=== PATIENT | female | born 1960 | race Caucasian/White ===

== ENCOUNTER 2018-02-02 09:12 | Emergency (ER) | payer MEDICARE, OTHER ==
[~2018-02-02] VITALS: Ht 162.6 cm; Wt 82.5 kg
[~2018-02-02 09:12] MED LIST: ABAT250V; ALBU90OI6 INH; ALPR.5; ALPR1; ALPR1 PO; AMIT25; AMOCLA875 PO; ASPI325; ATOR40TA PO; ATOR80 PO; BACL10 PO; BUME1; BUME2 PO; CALC.25 PO; CALCAVITDA PO; CEPH500; CEPH500 PO; CLIN300 PO; CYCL10; CYCL10 PO; DULO30; DULO30 PO; DULO60 PO; ENOX40I SC; ERGO50000 PO; ESCI20; FENO145 PO; FLUT44OIA IH; FURO80; FURO80 PO; GEMF600; GLIM2; GLIP10 PO; GLIP5 PO; HYDACE5 PO; HYDACE5325; HYDHCL25 PO; HYDMOR8 PO; IBUP800 PO; INSULANPEN SC; K-Dur20 MEQ PO; KETO30I; LEVFLO250 PO; LEVSOD100 PO; LEVSOD25 PO; LEVSOD50 PO; LISI10; LISI5 PO; LORA1 PO; Lisinopril2.5 MG PO; META800 PO; METF500; METF500 PO; METH10; MORP15ER; MORP30; MORP30 PO; MORP30ER; OMEP20ER PO; OXYACE5T PO; OXYB5 PO; OXYC15ER PO; OXYC30 PO; OXYC5 PO; PIOG30 PO; PIOG45 PO; POTCHL10ER PO; POTCHL20ER; PRED20 PO; PREG100 PO; PREG25 PO; PREG75 PO; PROP60; QUET100; QUIN300 PO; RANI150; RANI150 PO; RIZA10MLT MM; Roxicodone15 MG PO; SENN187; SENN187 PO; SERT100; SERT50; SITA100T2 PO; SITA50T2; SITA50T2 PO; SPIR25 PO; SULTRIDS PO; SUMA25; SUMA5NI; Sumatriptan5 MG INH; TIAG4; TRIHYD253B; VITAMIN D-32000 UNI1 PO; Zanaflex4 M1 PO; [UNRECOGNIZED DRUG - OTHER]; [UNRECOGNIZED DRUG - OTHER]
[2018-02-02 11:40] LABS: BASOPHILS ABSOLUTE AUTO 0.04 K/mm3 (0.00-0.23); BASOPHILS PERCENT AUTO 0 % (0-2); EOSINOPHILS ABSOLUTE AUTO 0.34 K/mm3 (0.00-0.68); EOSINOPHILS PERCENT AUTO 3 % (0-6); Hematocrit 38.5 % (33.0-51.0); Hemoglobin 12.6 g/dL (11.5-16.0); IMMATURE GRAN ABSOLUTE AUTO 0.06 K/mm3 (0.00-0.10); IMMATURE GRAN PERCENT AUTO 1 % (0-1); LYMPHOCYTES ABSOLUTE AUTO 1.37 K/mm3 (0.84-5.20); LYMPHOCYTES PERCENT AUTO 13 % (21-46); MONOCYTES ABSOLUTE AUTO 1.06 K/mm3 (0.16-1.47); MONOCYTES PERCENT AUTO 10 % (4-13); Mean Corpuscular HGB 29.4 pg (26.0-34.0); Mean Corpuscular HGB Conc 32.7 g/dL (31.5-36.5); Mean Corpuscular Volume 90 fL (80-100); Mean Platelet Volume 9.5 fL (9.1-12.4); NEUTROPHILS PERCENT AUTO 73 % (41-73); Platelet Count 141 K/mm3 (150-400); RDW Coefficient Variation 15.2 % (11.7-14.2); RDW Standard Deviation 50.6 fL (35.1-46.3); Red Blood Cell Count 4.28 M/mm3 (3.80-5.20); White Blood Cell Count 10.57 K/mm3 (4.00-11.30)
[2018-02-02] MEDS ORDERED: FURO40 PO ×2 (11:47)
[2018-02-02] MEDS ORDERED: VITAMIN B-121000 MCG PO (11:48)
[2018-02-02] MEDS ORDERED: CHOL10002 PO (11:49)
[2018-02-02] MEDS ORDERED: OXYB5 PO (11:50)
[2018-02-02] MEDS ORDERED: RANI150 PO (11:51)
[2018-02-02 11:57] LABS: Albumin, Blood 3.4 g/dL (3.4-5.0); Bilirubin, Total 0.2 mg/dL (0.1-1.0); Bun/Creatinine Ratio 47.8 (12.0-20.0); C-REACTIVE PROTEIN, EXT RANGE 5.78 mg/dL (0.000-0.300); Calcium, Blood 8.9 mg/dL (8.5-10.1); Creatinine, Blood 1.13 mg/dL (0.40-1.00); Globulin, Blood 3.5 g/dL (2.2-4.0); Potassium, Blood 4.1 mmol/L (3.5-5.5); Total Protein, Blood 6.9 g/dL (6.4-8.2)
[2018-02-02] MEDS ORDERED: FERRO-TIME325 MG PO (11:57)
[2018-02-02] MEDS ORDERED: POTCHL10ER PO (11:58)
[2018-02-02] MEDS ORDERED: OYSTER SHELL 51 EACH PO (11:59)
[2018-02-02] MEDS ORDERED: ALBU90OI6 INH (12:00)
[2018-02-02] MEDS ORDERED: TIZANIDINE HCL4 MG PO (12:00)
[2018-06-27] MEDS ORDERED: AMIT25 PO (07:54)
[2018-10-08] MEDS ORDERED: DEEP SEA44 ML (21:59)
[2018-10-09] MEDS ORDERED: Zanaflex4 MG PO (01:19)
[2018-10-09] MEDS ORDERED: LISI5 PO (01:21)
[2018-10-09] MEDS ORDERED: GLIP5 PO (01:22)
[2018-10-09] MEDS ORDERED: FURO40 PO (01:22)
[2018-10-09] MEDS ORDERED: LEVSOD50 PO (01:28)
[2018-10-09] MEDS ORDERED: SITA100T2 PO (01:30)
[2018-10-09] MEDS ORDERED: ALPR.5 PO (01:31)
[2018-10-13] MEDS ORDERED: DOCU100 PO (11:38)
[2018-10-13] MEDS ORDERED: DEXA4 PO (11:38)
[2018-10-13] MEDS ORDERED: NYSTATIN TOP (11:39)
[2018-10-13] MEDS ORDERED: ROXICODONE5 MG PO (11:42)
[2018-10-13] MEDS ORDERED: ACET325 PO (11:44)
== END 2018-02-02 14:04 | disposition home or self-care (01) ==
LOC: ER 09:12
PROVIDERS: Internal Medicine
DX: L53.9 Erythematous condition, unspecified (principal); J44.9 Chronic obstructive pulmonary disease, unspecified; F17.200 Nicotine dependence, unspecified, uncomplicated; E11.40 Type 2 diabetes mellitus with diabetic neuropathy, unspecified; Z98.890 Other specified postprocedural states; Z90.710 Acquired absence of both cervix and uterus; Z91.048 Other nonmedicinal substance allergy status; Z79.2 Long term (current) use of antibiotics; Z79.899 Other long term (current) drug therapy; Z96.652 Presence of left artificial knee joint
CPT/HCPCS: 36415; 80053; 82947; 83605; 85025; 86140; 87040; 87070; 87075; 87077; 87147; 87186; 87205; 96365; 96366; 99283; J3370; J7050

== ENCOUNTER 2018-06-27 06:37 | Inpatient (IN) | payer MEDICARE, OTHER ==
[~2018-06-27] VITALS: Ht 162.6 cm; Wt 75.5 kg
[~2018-06-27 06:37] MED LIST changes: +CHOL10002 PO; +FERRO-TIME325 MG PO; +FURO40 PO; +OYSTER SHELL 51 EACH PO; +TIZANIDINE HCL4 MG PO; +VITAMIN B-121000 MCG PO
[2018-06-27] MEDS ORDERED: BUME2 PO (07:54)
[2018-06-27] MEDS ORDERED: AMIT50 PO (07:54)
[2018-06-27 08:20] LABS: BASOPHILS ABSOLUTE AUTO 0.09 K/mm3 (0.00-0.23); BASOPHILS PERCENT AUTO 1 % (0-2); EOSINOPHILS ABSOLUTE AUTO 0.29 K/mm3 (0.00-0.68); EOSINOPHILS PERCENT AUTO 2 % (0-6); Hematocrit 41.4 % (33.0-51.0); IMMATURE GRAN ABSOLUTE AUTO 0.18 K/mm3 (0.00-0.10); IMMATURE GRAN PERCENT AUTO 1 % (0-1); LYMPHOCYTES ABSOLUTE AUTO 1.38 K/mm3 (0.84-5.20); LYMPHOCYTES PERCENT AUTO 8 % (21-46); MONOCYTES ABSOLUTE AUTO 1.17 K/mm3 (0.16-1.47); MONOCYTES PERCENT AUTO 7 % (4-13); Mean Corpuscular HGB 28.7 pg (26.0-34.0); Mean Corpuscular HGB Conc 33.8 g/dL (31.5-36.5); Mean Corpuscular Volume 85 fL (80-100); Mean Platelet Volume 10.2 fL (9.1-12.4); NEUTROPHILS ABSOLUTE AUTO 13.54 K/mm3 (1.96-9.15); NEUTROPHILS PERCENT AUTO 81 % (41-73); Platelet Count 155 K/mm3 (150-400); RDW Coefficient Variation 14.8 % (11.7-14.2); RDW Standard Deviation 46.3 fL (35.1-46.3); Red Blood Cell Count 4.87 M/mm3 (3.80-5.20); White Blood Cell Count 16.65 K/mm3 (4.00-11.30)
[2018-06-27 08:33] LABS: International Normalized Ratio 1.1; Prothrombin Time Results 11.3 Sec (9.7-11.5)
[2018-06-27 08:42] LABS: Albumin, Blood 3.5 g/dL (3.4-5.0); Albumin/Globulin Ratio 0.8 (0.8-1.8); Bilirubin, Total 0.7 mg/dL (0.1-1.0); Creatinine, Blood 4.2 mg/dL (0.40-1.00); Globulin, Blood 4.2 g/dL (2.2-4.0); Magnesium, Blood 1.7 mg/dL (1.6-2.4); Potassium, Blood 3.5 mmol/L (3.5-5.5); Total Protein, Blood 7.7 g/dL (6.4-8.2); Troponin I 0.017 ng/mL (0.000-0.040)
[2018-06-27 08:46] LABS: Thyroid Stimulating Hormone 0.835 uIU/mL (0.360-4.800)
[2018-06-27 08:59] LABS: Bun/Creatinine Ratio 41.7 (12.0-20.0)
[2018-06-27 09:31] LABS: Base Excess Venous -0.1 mmol/L; Bicarbonate Venous 24.8 mmol/L (24.0-30.0); PCO2 Venous 32.7 mmHg (38-42); PO2 Venous 184 mmHg (38-42); pH Blood Venous 7.47 (7.34-7.37)
[2018-06-27 10:05] LABS: Source, Urine Catheter
[2018-06-27 10:11] LABS: Bilirubin, Urine Neg (Neg); Blood, Urine 1+ (Neg); Glucose Qualitative, Urine Neg (Neg); Ketones, Urine Neg (Neg); Leukocyte Esterase, Urine 1+ (Neg); Nitrite, Urine Neg (Neg); Protein, Urine 2+ (Neg); Specific Gravity, Urine 1.015 (1.003-1.022); Urobilinogen, Urine NORM (Normal)
[2018-06-27 10:21] LABS: Appearance, Urine Hazy (Clear); Color, Urine Yellow (P-Yellow)
[2018-06-27 10:22] LABS: Amorphous Light (0-Heavy); Bacteria Few /hpf; Mucus Light (0-Heavy); Red Blood Cells, Urine 0-2 /hpf (0-2); Squamous Epithelial Cells Rare /hpf (Few); White Blood Cells, Urine 0-2 /hpf (0-5)
[2018-06-27 10:28] LABS: U Amphetamine Screen Not Detected
[2018-06-27 10:29] LABS: U Barbituate Screen Not Detected; U Benzodiazapine Screen Not Detected; U Buprenorphine Screen Not Detected; U Cannabinoids Screen Not Detected; U Cocaine Screen Not Detected; U Methadone Screen Not Detected; U Methamphetamine Screen Not Detected; U Opiates Screen Not Detected; U Oxycodone Screen Not Detected; U Phencyclidine Screen Not Detected; U Propoxyphene Screen Not Detected
[2018-06-27 11:01] LABS: Calcium, Ionized (POC) 0.71 mmol/L (1.10-1.46); Chloride (POC) 92 mmol/L (98-108); Glucose (ISTAT POC) 86 mg/dL (70-99); Hemoglobin (POC) 9.5 g/dL (12.0-16.0); Potassium (POC) 2.8 mmol/L (3.5-5.5); Sodium (POC) 134 mmol/L (135-148); Total CO2 (POC) 23 mmol/L (21-32)
[2018-06-27 13:46] LABS: Hematocrit 33.4 % (33.0-51.0); Hemoglobin 11.3 g/dL (11.5-16.0)
[2018-06-27 15:12] LABS: Bun/Creatinine Ratio 45.9 (12.0-20.0); Creatinine, Blood 3.18 mg/dL (0.40-1.00); Magnesium, Blood 1.4 mg/dL (1.6-2.4); Potassium, Blood 3.4 mmol/L (3.5-5.5)
[2018-06-27 19:13] LABS: Creatinine, Urine Random 17.9 mg/dL (27.00-270.00)
[2018-06-27 19:16] LABS: Microalb/Creat Ratio UR, Rand 286.592 mg/g (0.000-30.000); Microalbumin, Random Urine 51.3 mg/L (0.000-20.000)
[2018-06-27 19:27] LABS: Magnesium, Blood 2.1 mg/dL (1.6-2.4); Potassium, Blood 3.6 mmol/L (3.5-5.5)
[2018-06-28 04:25] LABS: BASOPHILS ABSOLUTE AUTO 0.04 K/mm3 (0.00-0.23); BASOPHILS PERCENT AUTO 0 % (0-2); EOSINOPHILS ABSOLUTE AUTO 0.28 K/mm3 (0.00-0.68); EOSINOPHILS PERCENT AUTO 3 % (0-6); Hematocrit 33.9 % (33.0-51.0); Hemoglobin 11.7 g/dL (11.5-16.0); IMMATURE GRAN ABSOLUTE AUTO 0.05 K/mm3 (0.00-0.10); IMMATURE GRAN PERCENT AUTO 1 % (0-1); LYMPHOCYTES ABSOLUTE AUTO 1.25 K/mm3 (0.84-5.20); LYMPHOCYTES PERCENT AUTO 12 % (21-46); MONOCYTES ABSOLUTE AUTO 0.79 K/mm3 (0.16-1.47); MONOCYTES PERCENT AUTO 8 % (4-13); Mean Corpuscular HGB 29.1 pg (26.0-34.0); Mean Corpuscular HGB Conc 34.5 g/dL (31.5-36.5); Mean Corpuscular Volume 84 fL (80-100); Mean Platelet Volume 9.7 fL (9.1-12.4); NEUTROPHILS ABSOLUTE AUTO 8.04 K/mm3 (1.96-9.15); NEUTROPHILS PERCENT AUTO 77 % (41-73); Platelet Count 140 K/mm3 (150-400); RDW Coefficient Variation 14.6 % (11.7-14.2); RDW Standard Deviation 45.1 fL (35.1-46.3); Red Blood Cell Count 4.02 M/mm3 (3.80-5.20); White Blood Cell Count 10.45 K/mm3 (4.00-11.30)
[2018-06-28 05:06] LABS: Alanine Aminotransfer (ALT/SGP 17 U/L (12-78); Albumin, Blood 2.7 g/dL (3.4-5.0); Albumin/Globulin Ratio 0.8 (0.8-1.8); Alk Phos 75 U/L (50-136); Anion Gap 10 mmol/L (6-16); Aspartate Aminotrans (AST/SGOT 18 U/L (12-37); Bilirubin, Total 0.5 mg/dL (0.1-1.0); Blood Urea Nitrogen 99 mg/dL (8-24); Bun/Creatinine Ratio 54.4 (12.0-20.0); CO2, Blood 27 mmol/L (21-32); Chloride, Blood 103 mmol/L (98-108); Creatinine, Blood 1.82 mg/dL (0.40-1.00); Globulin, Blood 3.4 g/dL (2.2-4.0); Glomerular Filtration Rate 30 (60-); Glucose, Blood 124 mg/dL (70-99); Potassium, Blood 3.5 mmol/L (3.5-5.5); Sodium, Blood 140 mmol/L (136-145); Total Protein, Blood 6.1 g/dL (6.4-8.2)
[2018-06-28 05:34] LABS: Calcium, Blood 8.2 mg/dL (8.5-10.1)
[2018-06-29 04:45] LABS: BASOPHILS ABSOLUTE AUTO 0.03 K/mm3 (0.00-0.23); BASOPHILS PERCENT AUTO 0 % (0-2); EOSINOPHILS ABSOLUTE AUTO 0.28 K/mm3 (0.00-0.68); EOSINOPHILS PERCENT AUTO 2 % (0-6); Hematocrit 35.9 % (33.0-51.0); Hemoglobin 11.9 g/dL (11.5-16.0); IMMATURE GRAN ABSOLUTE AUTO 0.06 K/mm3 (0.00-0.10); IMMATURE GRAN PERCENT AUTO 1 % (0-1); LYMPHOCYTES ABSOLUTE AUTO 1.03 K/mm3 (0.84-5.20); LYMPHOCYTES PERCENT AUTO 9 % (21-46); MONOCYTES ABSOLUTE AUTO 0.87 K/mm3 (0.16-1.47); MONOCYTES PERCENT AUTO 8 % (4-13); Mean Corpuscular HGB 28.9 pg (26.0-34.0); Mean Corpuscular HGB Conc 33.1 g/dL (31.5-36.5); NEUTROPHILS ABSOLUTE AUTO 9.17 K/mm3 (1.96-9.15); NEUTROPHILS PERCENT AUTO 80 % (41-73); Platelet Count 127 K/mm3 (150-400); RDW Coefficient Variation 14.7 % (11.7-14.2); RDW Standard Deviation 47.7 fL (35.1-46.3); Red Blood Cell Count 4.12 M/mm3 (3.80-5.20); White Blood Cell Count 11.44 K/mm3 (4.00-11.30)
[2018-06-29 04:50] LABS: Mean Corpuscular Volume 87 fL (80-100)
[2018-06-29 05:05] LABS: Albumin, Blood 2.7 g/dL (3.4-5.0); Anion Gap 10 mmol/L (6-16); Blood Urea Nitrogen 52 mg/dL (8-24); Bun/Creatinine Ratio 41.3 (12.0-20.0); CO2, Blood 28 mmol/L (21-32); Calcium, Blood 8.8 mg/dL (8.5-10.1); Chloride, Blood 106 mmol/L (98-108); Creatinine, Blood 1.26 mg/dL (0.40-1.00); Glomerular Filtration Rate 46 (60-); Glucose, Blood 147 mg/dL (70-99); Potassium, Blood 3.3 mmol/L (3.5-5.5); Sodium, Blood 144 mmol/L (136-145)
[2018-06-30 05:33] LABS: BASOPHILS ABSOLUTE AUTO 0.03 K/mm3 (0.00-0.23); BASOPHILS PERCENT AUTO 0 % (0-2); EOSINOPHILS ABSOLUTE AUTO 0.29 K/mm3 (0.00-0.68); EOSINOPHILS PERCENT AUTO 3 % (0-6); Hematocrit 40.1 % (33.0-51.0); Hemoglobin 13.2 g/dL (11.5-16.0); IMMATURE GRAN ABSOLUTE AUTO 0.04 K/mm3 (0.00-0.10); IMMATURE GRAN PERCENT AUTO 1 % (0-1); LYMPHOCYTES ABSOLUTE AUTO 0.99 K/mm3 (0.84-5.20); LYMPHOCYTES PERCENT AUTO 11 % (21-46); MONOCYTES ABSOLUTE AUTO 0.61 K/mm3 (0.16-1.47); MONOCYTES PERCENT AUTO 7 % (4-13); Mean Corpuscular HGB 29.2 pg (26.0-34.0); Mean Corpuscular HGB Conc 32.9 g/dL (31.5-36.5); Mean Corpuscular Volume 89 fL (80-100); Mean Platelet Volume 10.2 fL (9.1-12.4); NEUTROPHILS ABSOLUTE AUTO 6.72 K/mm3 (1.96-9.15); NEUTROPHILS PERCENT AUTO 78 % (41-73); Platelet Count 100 K/mm3 (150-400); RDW Standard Deviation 48.9 fL (35.1-46.3); Red Blood Cell Count 4.52 M/mm3 (3.80-5.20); White Blood Cell Count 8.68 K/mm3 (4.00-11.30)
[2018-06-30 05:59] LABS: Albumin, Blood 2.8 g/dL (3.4-5.0); Anion Gap 9 mmol/L (6-16); Blood Urea Nitrogen 29 mg/dL (8-24); Bun/Creatinine Ratio 25.2 (12.0-20.0); CO2, Blood 27 mmol/L (21-32); Calcium, Blood 8.2 mg/dL (8.5-10.1); Chloride, Blood 110 mmol/L (98-108); Creatinine, Blood 1.15 mg/dL (0.40-1.00); Glomerular Filtration Rate 52 (60-); Glucose, Blood 124 mg/dL (70-99); Magnesium, Blood 1.2 mg/dL (1.6-2.4); Phosphorus, Blood 1.8 mg/dL (2.5-4.9); Potassium, Blood 3.8 mmol/L (3.5-5.5); Sodium, Blood 146 mmol/L (136-145)
[2018-07-01 05:35] LABS: BASOPHILS ABSOLUTE AUTO 0.03 K/mm3 (0.00-0.23); BASOPHILS PERCENT AUTO 0 % (0-2); EOSINOPHILS ABSOLUTE AUTO 0.52 K/mm3 (0.00-0.68); EOSINOPHILS PERCENT AUTO 5 % (0-6); Hematocrit 34.7 % (33.0-51.0); Hemoglobin 11.2 g/dL (11.5-16.0); IMMATURE GRAN ABSOLUTE AUTO 0.04 K/mm3 (0.00-0.10); IMMATURE GRAN PERCENT AUTO 0 % (0-1); LYMPHOCYTES ABSOLUTE AUTO 1.41 K/mm3 (0.84-5.20); LYMPHOCYTES PERCENT AUTO 15 % (21-46); MONOCYTES ABSOLUTE AUTO 0.72 K/mm3 (0.16-1.47); MONOCYTES PERCENT AUTO 8 % (4-13); Mean Corpuscular HGB 28.9 pg (26.0-34.0); Mean Corpuscular HGB Conc 32.3 g/dL (31.5-36.5); Mean Corpuscular Volume 89 fL (80-100); Mean Platelet Volume 10.2 fL (9.1-12.4); NEUTROPHILS PERCENT AUTO 72 % (41-73); Platelet Count 125 K/mm3 (150-400); RDW Coefficient Variation 15.1 % (11.7-14.2); RDW Standard Deviation 49.9 fL (35.1-46.3); Red Blood Cell Count 3.88 M/mm3 (3.80-5.20); White Blood Cell Count 9.62 K/mm3 (4.00-11.30)
[2018-07-01 05:45] LABS: Albumin, Blood 2.9 g/dL (3.4-5.0); Anion Gap 8 mmol/L (6-16); Blood Urea Nitrogen 19 mg/dL (8-24); Bun/Creatinine Ratio 17.6 (12.0-20.0); CO2, Blood 27 mmol/L (21-32); Calcium, Blood 7.9 mg/dL (8.5-10.1); Chloride, Blood 110 mmol/L (98-108); Creatinine, Blood 1.08 mg/dL (0.40-1.00); Glomerular Filtration Rate 55 (60-); Glucose, Blood 106 mg/dL (70-99); Magnesium, Blood 1.7 mg/dL (1.6-2.4); Phosphorus, Blood 1.4 mg/dL (2.5-4.9); Potassium, Blood 3.6 mmol/L (3.5-5.5); Sodium, Blood 145 mmol/L (136-145)
[2018-07-02 05:05] LABS: Albumin, Blood 2.9 g/dL (3.4-5.0); Anion Gap 7 mmol/L (6-16); Blood Urea Nitrogen 16 mg/dL (8-24); Bun/Creatinine Ratio 18.4 (12.0-20.0); CO2, Blood 25 mmol/L (21-32); Calcium, Blood 8.1 mg/dL (8.5-10.1); Chloride, Blood 112 mmol/L (98-108); Creatinine, Blood 0.87 mg/dL (0.40-1.00); Glomerular Filtration Rate >60 (60-); Glucose, Blood 114 mg/dL (70-99); Phosphorus, Blood 1.2 mg/dL (2.5-4.9); Potassium, Blood 3.5 mmol/L (3.5-5.5); Sodium, Blood 144 mmol/L (136-145)
[2018-07-03 06:16] LABS: Albumin, Blood 3.1 g/dL (3.4-5.0); Anion Gap 8 mmol/L (6-16); Blood Urea Nitrogen 12 mg/dL (8-24); Bun/Creatinine Ratio 14.6 (12.0-20.0); CO2, Blood 23 mmol/L (21-32); Calcium, Blood 7.7 mg/dL (8.5-10.1); Chloride, Blood 111 mmol/L (98-108); Creatinine, Blood 0.82 mg/dL (0.40-1.00); Glomerular Filtration Rate >60 (60-); Glucose, Blood 127 mg/dL (70-99); Phosphorus, Blood 1.4 mg/dL (2.5-4.9); Potassium, Blood 3.4 mmol/L (3.5-5.5); Sodium, Blood 142 mmol/L (136-145)
[2018-07-04 08:29] LABS: Albumin, Blood 2.9 g/dL (3.4-5.0); Anion Gap 8 mmol/L (6-16); Blood Urea Nitrogen 12 mg/dL (8-24); Bun/Creatinine Ratio 13.5 (12.0-20.0); CO2, Blood 23 mmol/L (21-32); Calcium, Blood 7.4 mg/dL (8.5-10.1); Chloride, Blood 116 mmol/L (98-108); Creatinine, Blood 0.89 mg/dL (0.40-1.00); Glomerular Filtration Rate >60 (60-); Glucose, Blood 122 mg/dL (70-99); Phosphorus, Blood 1.8 mg/dL (2.5-4.9); Potassium, Blood 3.7 mmol/L (3.5-5.5); Sodium, Blood 147 mmol/L (136-145)
[2018-07-05 05:43] LABS: Hematocrit 34.1 % (33.0-51.0); Mean Corpuscular HGB 28.1 pg (26.0-34.0); Mean Corpuscular HGB Conc 32.3 g/dL (31.5-36.5); Mean Corpuscular Volume 87 fL (80-100); Mean Platelet Volume 10.1 fL (9.1-12.4); Platelet Count 150 K/mm3 (150-400); RDW Standard Deviation 47.6 fL (35.1-46.3); Red Blood Cell Count 3.91 M/mm3 (3.80-5.20); White Blood Cell Count 7.52 K/mm3 (4.00-11.30)
[2018-07-05 06:14] LABS: Albumin, Blood 2.9 g/dL (3.4-5.0); Anion Gap 8 mmol/L (6-16); Blood Urea Nitrogen 10 mg/dL (8-24); Bun/Creatinine Ratio 12.3 (12.0-20.0); CO2, Blood 24 mmol/L (21-32); Calcium, Blood 7.5 mg/dL (8.5-10.1); Chloride, Blood 115 mmol/L (98-108); Creatinine, Blood 0.81 mg/dL (0.40-1.00); Glomerular Filtration Rate >60 (60-); Glucose, Blood 101 mg/dL (70-99); Potassium, Blood 3.6 mmol/L (3.5-5.5); Sodium, Blood 147 mmol/L (136-145)
[2018-07-06 10:16] LABS: Anion Gap 8 mmol/L (6-16); Blood Urea Nitrogen 9 mg/dL (8-24); Bun/Creatinine Ratio 10.5 (12.0-20.0); CO2, Blood 24 mmol/L (21-32); Calcium, Blood 8.1 mg/dL (8.5-10.1); Chloride, Blood 111 mmol/L (98-108); Creatinine, Blood 0.85 mg/dL (0.40-1.00); Glomerular Filtration Rate >60 (60-); Glucose, Blood 170 mg/dL (70-99); Potassium, Blood 3.8 mmol/L (3.5-5.5); Sodium, Blood 143 mmol/L (136-145)
[2018-07-11 09:14] LABS: Anion Gap 7 mmol/L (6-16); Blood Urea Nitrogen 10 mg/dL (8-24); Bun/Creatinine Ratio 13.1 (12.0-20.0); CO2, Blood 23 mmol/L (21-32); Calcium, Blood 7.9 mg/dL (8.5-10.1); Chloride, Blood 112 mmol/L (98-108); Creatinine, Blood 0.76 mg/dL (0.40-1.00); Glomerular Filtration Rate >60 (60-); Glucose, Blood 139 mg/dL (70-99); Phosphorus, Blood 1.7 mg/dL (2.5-4.9); Sodium, Blood 142 mmol/L (136-145)
[2018-07-11] MEDS ORDERED: Synthroid/Lev0.05 MG PO (12:26)
[2018-07-11] MEDS ORDERED: SACC250C (12:28)
[2018-07-11] MEDS ORDERED: VANC125 PO (12:28)
[2018-07-11] MEDS ORDERED: DOCU100 PO (12:29)
[2018-07-11] MEDS ORDERED: K-Phos Origina500 MG PO (12:31)
== END 2018-07-11 14:41 | disposition home or self-care (01) | DRG 682 ==
LOC: ER 06:37 → ICUW 10:45 → ICUE 10:45 → MEDS 10:45 → ICUE 12:00 → MEDS 06-29 18:15 → ENPENDDIS 07-11 11:35 → MEDS 07-11 14:41
PROVIDERS: Emergency Medicine; Hospitalist; Internal Medicine; Internal Medicine Critical Care Medicine
PROC: 3E033XZ Introduction of Vasopressor into Peripheral Vein, Percutaneous Approach (ICD-10-PCS; principal; 2018-06-28)
DX: N17.9 Acute kidney failure, unspecified (principal); G93.41 Metabolic encephalopathy; J96.01 Acute respiratory failure with hypoxia; A41.9 Sepsis, unspecified organism; A04.72 Enterocolitis due to Clostridium difficile, not specified as recurrent; E87.1 Hypo-osmolality and hyponatremia; E11.22 Type 2 diabetes mellitus with diabetic chronic kidney disease; I12.9 Hypertensive chronic kidney disease with stage 1 through stage 4 chronic kidney disease, or unspecified chronic kidney disease; N18.3 Chronic kidney disease, stage 3 (moderate); I95.9 Hypotension, unspecified; E83.39 Other disorders of phosphorus metabolism; E83.42 Hypomagnesemia; E87.6 Hypokalemia; G93.9 Disorder of brain, unspecified; G47.33 Obstructive sleep apnea (adult) (pediatric); E03.9 Hypothyroidism, unspecified; G89.4 Chronic pain syndrome; R53.81 Other malaise; F17.210 Nicotine dependence, cigarettes, uncomplicated; E78.5 Hyperlipidemia, unspecified; Z66 Do not resuscitate; F32.9 Major depressive disorder, single episode, unspecified; E11.40 Type 2 diabetes mellitus with diabetic neuropathy, unspecified; G43.909 Migraine, unspecified, not intractable, without status migrainosus; M41.9 Scoliosis, unspecified; E21.3 Hyperparathyroidism, unspecified
CPT/HCPCS: 36415; 36569; 51702; 70450; 70553; 71045; 71046; 76770; 80047; 80048; 80053; 80069; 81001; 82043; 82330; 82550; 82570; 82803; 82947; 83036; 83605; 83690; 83735; 83880; 83970; 84100; 84132; 84300; 84443; 84484; 85014; 85018; 85025; 85027; 85610; 87040; 87086; 87493; 93005; 93010; 94660; 94760; 94762; 96361; 96365; 96376; 97110; 97116; 97163; 97166; 97530; 97535; 99285-25; A9577; C1751; C9113; G0515; G8978; G8979; G8987; G8988; J0696; J1644; J1815; J1940; J2405; J2550; J2997; J3010; J3475; J3480; J7030; J7040; J7050; J7060; J7120; Q0163

== ENCOUNTER 2018-07-20 09:45 | Emergency (ER) | payer MEDICARE, OTHER ==
[~2018-07-20] VITALS: Ht 160 cm; Wt 86.2 kg
[~2018-07-20 09:45] MED LIST changes: +AMIT50 PO; +DOCU100 PO; +K-Phos Origina500 MG PO; +SACC250C; +Synthroid/Lev0.05 MG PO; +VANC125 PO
[2018-07-20 10:57] LABS: BASOPHILS ABSOLUTE AUTO 0.04 K/mm3 (0.00-0.23); BASOPHILS PERCENT AUTO 0 % (0-2); EOSINOPHILS ABSOLUTE AUTO 0.32 K/mm3 (0.00-0.68); EOSINOPHILS PERCENT AUTO 3 % (0-6); Hematocrit 35.4 % (33.0-51.0); Hemoglobin 11.5 g/dL (11.5-16.0); IMMATURE GRAN ABSOLUTE AUTO 0.04 K/mm3 (0.00-0.10); IMMATURE GRAN PERCENT AUTO 0 % (0-1); LYMPHOCYTES ABSOLUTE AUTO 1.39 K/mm3 (0.84-5.20); LYMPHOCYTES PERCENT AUTO 14 % (21-46); MONOCYTES ABSOLUTE AUTO 1.02 K/mm3 (0.16-1.47); MONOCYTES PERCENT AUTO 10 % (4-13); Mean Corpuscular HGB 29.8 pg (26.0-34.0); Mean Corpuscular HGB Conc 32.5 g/dL (31.5-36.5); Mean Corpuscular Volume 92 fL (80-100); Mean Platelet Volume 9.7 fL (9.1-12.4); NEUTROPHILS ABSOLUTE AUTO 7.49 K/mm3 (1.96-9.15); NEUTROPHILS PERCENT AUTO 73 % (41-73); Platelet Count 181 K/mm3 (150-400); RDW Coefficient Variation 18.5 % (11.7-14.2); RDW Standard Deviation 61.7 fL (35.1-46.3); Red Blood Cell Count 3.86 M/mm3 (3.80-5.20)
[2018-07-20 11:00] LABS: Albumin, Blood 3.2 g/dL (3.4-5.0); Albumin/Globulin Ratio 1.1 (0.8-1.8); Bilirubin, Total 0.2 mg/dL (0.1-1.0); Bun/Creatinine Ratio 14.9 (12.0-20.0); Creatinine, Blood 1.01 mg/dL (0.40-1.00); Potassium, Blood 4.6 mmol/L (3.5-5.5); Total Protein, Blood 6.2 g/dL (6.4-8.2)
[2018-07-20] MEDS ORDERED: FURO40 (13:37)
[2018-07-20 13:50] LABS: Source, Urine Clean Catch
[2018-07-20 14:03] LABS: Bilirubin, Urine Neg (Neg); Blood, Urine 2+ (Neg); Glucose Qualitative, Urine Neg (Neg); Ketones, Urine Neg (Neg); Leukocyte Esterase, Urine Neg (Neg); Nitrite, Urine Neg (Neg); Protein, Urine Neg (Neg); Specific Gravity, Urine 1.015 (1.003-1.022); Urobilinogen, Urine NORM (Normal)
[2018-07-20 14:25] LABS: Appearance, Urine Hazy (Clear); Color, Urine Yellow (P-Yellow)
[2018-07-20 14:26] LABS: Bacteria Few /hpf; Squamous Epithelial Cells Mod /hpf (Few); White Blood Cells, Urine 0-2 /hpf (0-5)
== END 2018-07-20 17:02 | disposition short-term general hospital (02) ==
LOC: ER 09:45
PROVIDERS: Emergency Medicine
DX: R41.82 Altered mental status, unspecified (principal); E86.0 Dehydration; G93.89 Other specified disorders of brain; E11.40 Type 2 diabetes mellitus with diabetic neuropathy, unspecified; J44.9 Chronic obstructive pulmonary disease, unspecified; Z91.048 Other nonmedicinal substance allergy status; Z79.899 Other long term (current) drug therapy
CPT/HCPCS: 36415; 70450; 71046; 71260; 73502; 80053; 81001; 82947; 85025; 93005; 93010; 96361; 96365; 96375; 99285-25; J1100; J2543; J7030; Q9967

== ENCOUNTER 2018-08-06 20:39 | Observation (INO) | payer MEDICARE, OTHER ==
[~2018-08-06] VITALS: Ht 162.6 cm; Wt 82.3 kg
[~2018-08-06 20:39] MED LIST changes: +AMIT25 PO; -AMIT50 PO; +FURO40
[2018-08-06] MEDS ORDERED: ALPR.5 PO (21:00)
[2018-08-06] MEDS ORDERED: ATOR40TA PO (21:00)
[2018-08-06] MEDS ORDERED: DEXA4 PO (21:02)
[2018-08-06] MEDS ORDERED: DEXA2 PO (21:03)
[2018-08-06] MEDS ORDERED: Flovent 110 MCG12 GM INH (21:06)
[2018-08-06] MEDS ORDERED: METO2.5 PO (21:07)
[2018-08-06] MEDS ORDERED: Omeprazole20 M1 PO (21:07)
[2018-08-06] MEDS ORDERED: OXYB5 PO (21:08)
[2018-08-06] MEDS ORDERED: OXYC15ER PO (21:09)
[2018-08-06] MEDS ORDERED: POTCHL20ER PO (21:10)
[2018-08-06] MEDS ORDERED: Phospha 250 Ne250 MG PO (21:10)
[2018-08-06] MEDS ORDERED: PREG150 PO (21:11)
[2018-08-06] MEDS ORDERED: SITA100T2 PO (21:11)
[2018-08-06] MEDS ORDERED: Ranitidine HCl150 M1 PO (21:11)
[2018-08-06] MEDS ORDERED: SPIR25 PO (21:12)
[2018-08-06 21:41] LABS: BASOPHILS ABSOLUTE AUTO 0.05 K/mm3 (0.00-0.23); BASOPHILS PERCENT AUTO 0 % (0-2); EOSINOPHILS ABSOLUTE AUTO 0.05 K/mm3 (0.00-0.68); EOSINOPHILS PERCENT AUTO 0 % (0-6); Hematocrit 35.5 % (33.0-51.0); Hemoglobin 11.2 g/dL (11.5-16.0); IMMATURE GRAN ABSOLUTE AUTO 0.61 K/mm3 (0.00-0.10); IMMATURE GRAN PERCENT AUTO 3 % (0-1); LYMPHOCYTES ABSOLUTE AUTO 1.01 K/mm3 (0.84-5.20); LYMPHOCYTES PERCENT AUTO 5 % (21-46); MONOCYTES ABSOLUTE AUTO 1.68 K/mm3 (0.16-1.47); MONOCYTES PERCENT AUTO 8 % (4-13); Mean Corpuscular HGB 29.9 pg (26.0-34.0); Mean Corpuscular HGB Conc 31.5 g/dL (31.5-36.5); Mean Corpuscular Volume 95 fL (80-100); Mean Platelet Volume 9.8 fL (9.1-12.4); NEUTROPHILS ABSOLUTE AUTO 18.84 K/mm3 (1.96-9.15); NEUTROPHILS PERCENT AUTO 85 % (41-73); Platelet Count 210 K/mm3 (150-400); RDW Standard Deviation 65.7 fL (35.1-46.3); Red Blood Cell Count 3.74 M/mm3 (3.80-5.20); White Blood Cell Count 22.24 K/mm3 (4.00-11.30)
[2018-08-06 22:03] LABS: Bilirubin, Total 0.2 mg/dL (0.1-1.0); Bun/Creatinine Ratio 34.9 (12.0-20.0); Calcium, Blood 8.9 mg/dL (8.5-10.1); Creatinine, Blood 1.06 mg/dL (0.40-1.00); Globulin, Blood 2.9 g/dL (2.2-4.0); Potassium, Blood 4.4 mmol/L (3.5-5.5); Total Protein, Blood 5.9 g/dL (6.4-8.2)
[2018-08-06 22:20] LABS: PCO2 Arterial 56.4 mmHg (35-45); PO2 Arterial 54.2 mmHg (80-100); pH Blood Arterial 7.36 (7.35-7.45)
[2018-08-06 22:46] LABS: Source, Urine Catheter
[2018-08-06 22:54] LABS: Appearance, Urine Clear (Clear); Bilirubin, Urine Neg (Neg); Blood, Urine Neg (Neg); Color, Urine Yellow (P-Yellow); Glucose Qualitative, Urine Neg (Neg); Ketones, Urine Neg (Neg); Leukocyte Esterase, Urine Neg (Neg); Nitrite, Urine Neg (Neg); Protein, Urine Neg (Neg); Urobilinogen, Urine NORM (Normal)
[2018-08-07 00:48] LABS: International Normalized Ratio 0.93; Prothrombin Time Results 9.6 Sec (9.7-11.5)
[2018-08-07 05:23] LABS: Hematocrit 35.3 % (33.0-51.0); Hemoglobin 11.3 g/dL (11.5-16.0); Mean Corpuscular HGB 29.7 pg (26.0-34.0); Mean Corpuscular Volume 93 fL (80-100); Mean Platelet Volume 9.9 fL (9.1-12.4); Platelet Count 211 K/mm3 (150-400); RDW Standard Deviation 64.1 fL (35.1-46.3); Red Blood Cell Count 3.81 M/mm3 (3.80-5.20); White Blood Cell Count 20.01 K/mm3 (4.00-11.30)
[2018-08-07 05:49] LABS: Alanine Aminotransfer (ALT/SGP 30 U/L (12-78); Albumin, Blood 2.6 g/dL (3.4-5.0); Alk Phos 75 U/L (50-136); Anion Gap 6 mmol/L (6-16); Aspartate Aminotrans (AST/SGOT 13 U/L (12-37); Bilirubin, Total 0.3 mg/dL (0.1-1.0); Blood Urea Nitrogen 33 mg/dL (8-24); CO2, Blood 30 mmol/L (21-32); Calcium, Blood 8.8 mg/dL (8.5-10.1); Chloride, Blood 104 mmol/L (98-108); Creatinine, Blood 0.87 mg/dL (0.40-1.00); Globulin, Blood 2.6 g/dL (2.2-4.0); Glomerular Filtration Rate >60 (60-); Glucose, Blood 110 mg/dL (70-99); Sodium, Blood 140 mmol/L (136-145); Total Protein, Blood 5.2 g/dL (6.4-8.2)
[2018-08-07 08:38] LABS: U Amphetamine Screen Not Detected; U Barbituate Screen Not Detected; U Benzodiazapine Screen DETECTED; U Cannabinoids Screen Not Detected; U Cocaine Screen Not Detected; U Methadone Screen Not Detected; U Methamphetamine Screen Not Detected; U Opiates Screen Not Detected; U Phencyclidine Screen Not Detected
[2018-08-07 08:39] LABS: U Buprenorphine Screen Not Detected; U Oxycodone Screen DETECTED; U Propoxyphene Screen Not Detected
[2018-08-08 06:07] LABS: BASOPHILS ABSOLUTE AUTO 0.04 K/mm3 (0.00-0.23); BASOPHILS PERCENT AUTO 0 % (0-2); EOSINOPHILS ABSOLUTE AUTO 0.11 K/mm3 (0.00-0.68); EOSINOPHILS PERCENT AUTO 1 % (0-6); Hematocrit 37.8 % (33.0-51.0); IMMATURE GRAN ABSOLUTE AUTO 0.23 K/mm3 (0.00-0.10); IMMATURE GRAN PERCENT AUTO 2 % (0-1); LYMPHOCYTES ABSOLUTE AUTO 1.82 K/mm3 (0.84-5.20); LYMPHOCYTES PERCENT AUTO 15 % (21-46); MONOCYTES ABSOLUTE AUTO 1.18 K/mm3 (0.16-1.47); MONOCYTES PERCENT AUTO 10 % (4-13); Mean Corpuscular HGB 29.9 pg (26.0-34.0); Mean Corpuscular HGB Conc 31.7 g/dL (31.5-36.5); Mean Corpuscular Volume 94 fL (80-100); Mean Platelet Volume 9.6 fL (9.1-12.4); NEUTROPHILS ABSOLUTE AUTO 8.96 K/mm3 (1.96-9.15); NEUTROPHILS PERCENT AUTO 73 % (41-73); Platelet Count 174 K/mm3 (150-400); RDW Coefficient Variation 18.9 % (11.7-14.2); Red Blood Cell Count 4.02 M/mm3 (3.80-5.20); White Blood Cell Count 12.34 K/mm3 (4.00-11.30)
[2018-08-08 06:55] LABS: Anion Gap 8 mmol/L (6-16); Blood Urea Nitrogen 31 mg/dL (8-24); Bun/Creatinine Ratio 36.7 (12.0-20.0); CO2, Blood 27 mmol/L (21-32); Calcium, Blood 8.3 mg/dL (8.5-10.1); Chloride, Blood 109 mmol/L (98-108); Creatinine, Blood 0.84 mg/dL (0.40-1.00); Glomerular Filtration Rate >60 (60-); Glucose, Blood 151 mg/dL (70-99); Potassium, Blood 3.8 mmol/L (3.5-5.5); Sodium, Blood 144 mmol/L (136-145)
[2018-08-08] MEDS ORDERED: Esgic Tablet1 EACH PO (10:28)
[2018-08-08] MEDS ORDERED: METF500C PO (10:29)
== END 2018-08-08 10:57 | disposition home or self-care (01) ==
LOC: DELPENDDIS → ER 20:39 → MEDS 20:40 → ENPENDDIS 08-08 07:58 → MEDS 08-08 10:57
PROVIDERS: Emergency Medicine; Family Medicine; Internal Medicine
DX: E86.0 Dehydration (principal); R51 Headache; G92 Toxic encephalopathy; R53.83 Other fatigue; E11.9 Type 2 diabetes mellitus without complications; J44.9 Chronic obstructive pulmonary disease, unspecified; G47.30 Sleep apnea, unspecified; E03.9 Hypothyroidism, unspecified; F17.210 Nicotine dependence, cigarettes, uncomplicated; D72.829 Elevated white blood cell count, unspecified; Z79.899 Other long term (current) drug therapy
CPT/HCPCS: 36415; 36600; 70450; 71046; 80048; 80053; 81003; 82140; 82803; 82947; 85025; 85027; 85610; 93005; 93010; 96361; 99285-25; G0378; J7030; P9612

== ENCOUNTER 2018-12-03 20:24 | Emergency (ER) | payer MEDICARE, OTHER ==
[~2018-12-03] VITALS: Ht 162.6 cm; Wt 68.0 kg
[~2018-12-03 20:24] MED LIST changes: +ACET325 PO; +ALPR.5 PO; +DEEP SEA44 ML; +DEXA2 PO; +DEXA4 PO; +Esgic Tablet1 EACH PO; +Flovent 110 MCG12 GM INH; +METF500C PO; +METO2.5 PO; +NYSTATIN TOP; +Omeprazole20 M1 PO; +POTCHL20ER PO; +PREG150 PO; +Phospha 250 Ne250 MG PO; +ROXICODONE5 MG PO; +Ranitidine HCl150 M1 PO; +Zanaflex4 MG PO
[2018-12-03 21:21] LABS: Source, Urine Clean Catch
[2018-12-03 21:26] LABS: BASOPHILS ABSOLUTE AUTO 0.08 K/mm3 (0.00-0.23); BASOPHILS PERCENT AUTO 1 % (0-2); EOSINOPHILS ABSOLUTE AUTO 0.31 K/mm3 (0.00-0.68); EOSINOPHILS PERCENT AUTO 2 % (0-6); Hematocrit 33.9 % (33.0-51.0); Hemoglobin 10.8 g/dL (11.5-16.0); IMMATURE GRAN PERCENT AUTO 2 % (0-1); LYMPHOCYTES ABSOLUTE AUTO 2.41 K/mm3 (0.84-5.20); LYMPHOCYTES PERCENT AUTO 18 % (21-46); MONOCYTES ABSOLUTE AUTO 1.17 K/mm3 (0.16-1.47); MONOCYTES PERCENT AUTO 9 % (4-13); Mean Corpuscular HGB 29.7 pg (26.0-34.0); Mean Corpuscular HGB Conc 31.9 g/dL (31.5-36.5); Mean Corpuscular Volume 93 fL (80-100); Mean Platelet Volume 8.5 fL (9.1-12.4); NEUTROPHILS ABSOLUTE AUTO 9.08 K/mm3 (1.96-9.15); NEUTROPHILS PERCENT AUTO 69 % (41-73); Platelet Count 353 K/mm3 (150-400); RDW Coefficient Variation 18.2 % (11.7-14.2); RDW Standard Deviation 61.8 fL (35.1-46.3); Red Blood Cell Count 3.64 M/mm3 (3.80-5.20); White Blood Cell Count 13.25 K/mm3 (4.00-11.30)
[2018-12-03 21:26] LABS: Bilirubin, Urine Neg (Neg); Blood, Urine 1+ (Neg); Glucose Qualitative, Urine Neg (Neg); Ketones, Urine 1+ (Neg); Leukocyte Esterase, Urine 2+ (Neg); Nitrite, Urine Neg (Neg); Protein, Urine 2+ (Neg); Specific Gravity, Urine 1.015 (1.003-1.022); Urobilinogen, Urine NORM (Normal)
[2018-12-03 21:32] LABS: Color, Urine Yellow (P-Yellow)
[2018-12-03 21:34] LABS: Appearance, Urine Hazy (Clear)
[2018-12-03 21:35] LABS: Bacteria Many /hpf; Red Blood Cells, Urine Rare /hpf (0-2); Squamous Epithelial Cells Many /hpf (Few); White Blood Cells, Urine 25-50 /hpf (0-5)
[2018-12-03 21:46] LABS: Albumin, Blood 3.1 g/dL (3.4-5.0); Albumin/Globulin Ratio 0.9 (0.8-1.8); Bilirubin, Total 0.2 mg/dL (0.1-1.0); Bun/Creatinine Ratio 13.8 (12.0-20.0); Creatinine, Blood 1.38 mg/dL (0.40-1.00); Globulin, Blood 3.3 g/dL (2.2-4.0); Potassium, Blood 3.1 mmol/L (3.5-5.5); Total Protein, Blood 6.4 g/dL (6.4-8.2)
[2018-12-06] MEDS ORDERED: Veetids 500500 MG PO (07:41)
== END 2018-12-03 23:45 | disposition home or self-care (01) ==
LOC: ER 20:24
PROVIDERS: Emergency Medicine
DX: E87.6 Hypokalemia (principal); Z88.8 Allergy status to other drugs, medicaments and biological substances; Z91.048 Other nonmedicinal substance allergy status; Z79.899 Other long term (current) drug therapy; Z79.84 Long term (current) use of oral hypoglycemic drugs; E11.40 Type 2 diabetes mellitus with diabetic neuropathy, unspecified
CPT/HCPCS: 36415; 70450; 80053; 81001; 85025; 87086; 87147; 96361; 96365; 96375; 99285-25; J0696; J2765; J3010; J7030

== ENCOUNTER 2018-12-06 09:25 | Emergency (ER) | payer MEDICARE, OTHER ==
[~2018-12-06] VITALS: Ht 162.6 cm; Wt 81.7 kg
[~2018-12-06 09:25] MED LIST changes: +Veetids 500500 MG PO
[2018-12-06 10:00] LABS: BASOPHILS ABSOLUTE AUTO 0.05 K/mm3 (0.00-0.23); BASOPHILS PERCENT AUTO 1 % (0-2); EOSINOPHILS ABSOLUTE AUTO 0.16 K/mm3 (0.00-0.68); EOSINOPHILS PERCENT AUTO 2 % (0-6); Hematocrit 30.8 % (33.0-51.0); Hemoglobin 9.9 g/dL (11.5-16.0); IMMATURE GRAN ABSOLUTE AUTO 0.11 K/mm3 (0.00-0.10); IMMATURE GRAN PERCENT AUTO 1 % (0-1); LYMPHOCYTES PERCENT AUTO 17 % (21-46); MONOCYTES ABSOLUTE AUTO 0.68 K/mm3 (0.16-1.47); MONOCYTES PERCENT AUTO 9 % (4-13); Mean Corpuscular HGB 29.6 pg (26.0-34.0); Mean Corpuscular HGB Conc 32.1 g/dL (31.5-36.5); Mean Corpuscular Volume 92 fL (80-100); Mean Platelet Volume 8.8 fL (9.1-12.4); NEUTROPHILS ABSOLUTE AUTO 5.31 K/mm3 (1.96-9.15); NEUTROPHILS PERCENT AUTO 70 % (41-73); Platelet Count 279 K/mm3 (150-400); RDW Coefficient Variation 18.3 % (11.7-14.2); RDW Standard Deviation 61.6 fL (35.1-46.3); Red Blood Cell Count 3.34 M/mm3 (3.80-5.20); White Blood Cell Count 7.61 K/mm3 (4.00-11.30)
[2018-12-06 10:23] LABS: Alanine Aminotransfer (ALT/SGP <6 U/L (12-78); Albumin, Blood 2.8 g/dL (3.4-5.0); Albumin/Globulin Ratio 0.9 (0.8-1.8); Alk Phos 60 U/L (50-136); Anion Gap 8 mmol/L (6-16); Aspartate Aminotrans (AST/SGOT 9 U/L (12-37); Bilirubin, Total 0.2 mg/dL (0.1-1.0); Blood Urea Nitrogen 8 mg/dL (8-24); Bun/Creatinine Ratio 10.3 (12.0-20.0); CO2, Blood 25 mmol/L (21-32); Calcium, Blood 7.3 mg/dL (8.5-10.1); Chloride, Blood 113 mmol/L (98-108); Creatinine, Blood 0.78 mg/dL (0.40-1.00); Globulin, Blood 3.1 g/dL (2.2-4.0); Glomerular Filtration Rate >60 (60-); Glucose, Blood 148 mg/dL (70-99); Sodium, Blood 146 mmol/L (136-145); Total Protein, Blood 5.9 g/dL (6.4-8.2)
[2018-12-06] MEDS ORDERED: PROM25 PO (12:34)
== END 2018-12-06 13:26 | disposition home or self-care (01) ==
LOC: ER 09:25
PROVIDERS: Emergency Medicine
DX: K29.70 Gastritis, unspecified, without bleeding (principal); E86.0 Dehydration; E11.40 Type 2 diabetes mellitus with diabetic neuropathy, unspecified; J44.9 Chronic obstructive pulmonary disease, unspecified; F17.200 Nicotine dependence, unspecified, uncomplicated; Z88.8 Allergy status to other drugs, medicaments and biological substances; Z91.048 Other nonmedicinal substance allergy status; Z79.899 Other long term (current) drug therapy; Z79.84 Long term (current) use of oral hypoglycemic drugs; Z79.891 Long term (current) use of opiate analgesic
CPT/HCPCS: 80053; 83690; 85025; 96361; 96374; 96375; 99285-25; C9113; J2405; J2550; J7120

== ENCOUNTER 2019-01-12 19:17 | Emergency (ER) | payer MEDICARE, OTHER ==
[~2019-01-12] VITALS: Ht 162.6 cm; Wt 65.8 kg
[~2019-01-12 19:17] MED LIST changes: +PROM25 PO
== END 2019-01-12 21:12 | disposition home or self-care (01) ==
LOC: ER 19:17
DX: M25.552 Pain in left hip (principal); J44.9 Chronic obstructive pulmonary disease, unspecified; F17.200 Nicotine dependence, unspecified, uncomplicated; Z91.048 Other nonmedicinal substance allergy status; Z79.899 Other long term (current) drug therapy; Z79.84 Long term (current) use of oral hypoglycemic drugs; Z99.89 Dependence on other enabling machines and devices; Z96.642 Presence of left artificial hip joint
CPT/HCPCS: 73502

== ENCOUNTER 2019-08-28 09:52 | Emergency (ER) | payer OTHER, MEDICARE ==
[~2019-08-28] VITALS: Ht 162.6 cm; Wt 90.7 kg
[2019-08-28] MEDS ORDERED: FURO40 PO (11:48)
[2019-08-28] MEDS ORDERED: Flonase 0.05% N16 GM (11:48)
[2019-08-28] MEDS ORDERED: Ventolin/Prove6.7 GM INH (11:49)
[2019-08-28] MEDS ORDERED: Alprazolam ER1 MG PO (12:32)
[2019-08-28] MEDS ORDERED: Roxicodone15 MG PO (12:32)
[2019-08-28] MEDS ORDERED: FUROSEMIDE (12:32)
[2019-08-28] MEDS ORDERED: POTA10T PO (12:33)
[2019-08-28] MEDS ORDERED: AMIT50 PO (12:33)
[2019-08-28] MEDS ORDERED: Ondansetron Odt8 MG PO (12:33)
[2019-08-28] MEDS ORDERED: Prilosec2.5 MG PO (12:33)
[2019-08-28] MEDS ORDERED: Zantac150 MG (12:33)
[2019-08-28] MEDS ORDERED: Cymbalta20 MG (12:33)
[2019-08-28] MEDS ORDERED: METO10 PO (12:34)
[2019-08-28] MEDS ORDERED: BREO ELLIPTA 11 EACH IH (12:34)
[2019-08-28] MEDS ORDERED: HYDMOR4 PO (12:34)
[2019-08-28] MEDS ORDERED: ATORVASTATIN CA40 MG PO (12:34)
[2019-08-28] MEDS ORDERED: METF500 PO (12:35)
== END 2019-08-28 12:48 | disposition home or self-care (01) ==
LOC: ER 09:52
DX: M96.621 Fracture of humerus following insertion of orthopedic implant, joint prosthesis, or bone plate, right arm (principal); E11.40 Type 2 diabetes mellitus with diabetic neuropathy, unspecified; F17.200 Nicotine dependence, unspecified, uncomplicated; Z88.8 Allergy status to other drugs, medicaments and biological substances; Z91.048 Other nonmedicinal substance allergy status; Z79.899 Other long term (current) drug therapy; Z79.891 Long term (current) use of opiate analgesic; Z79.84 Long term (current) use of oral hypoglycemic drugs
CPT/HCPCS: 73060; 96374; 96375; 99283-25; J1170; J2405

== ENCOUNTER 2020-03-05 15:22 | Emergency (ER) | payer MEDICARE, OTHER ==
[~2020-03-05] VITALS: Ht 175.3 cm; Wt 70.3 kg
[~2020-03-05 15:22] MED LIST changes: +AMIT50 PO; +ATORVASTATIN CA40 MG PO; +Alprazolam ER1 MG PO; +BREO ELLIPTA 11 EACH IH; +Cymbalta20 MG; +FUROSEMIDE; +Flonase 0.05% N16 GM; +HYDMOR4 PO; +METO10 PO; +Ondansetron Odt8 MG PO; +POTA10T PO; +Prilosec2.5 MG PO; +Ventolin/Prove6.7 GM INH; +Zantac150 MG
[2020-03-05 16:44] LABS: BASOPHILS ABSOLUTE AUTO 0.03 K/mm3 (0.00-0.23); BASOPHILS PERCENT AUTO 0 % (0-2); EOSINOPHILS ABSOLUTE AUTO 0.14 K/mm3 (0.00-0.68); EOSINOPHILS PERCENT AUTO 2 % (0-6); Hematocrit 44.6 % (33.0-51.0); IMMATURE GRAN ABSOLUTE AUTO 0.03 K/mm3 (0.00-0.10); IMMATURE GRAN PERCENT AUTO 0 % (0-1); LYMPHOCYTES ABSOLUTE AUTO 1.16 K/mm3 (0.84-5.20); LYMPHOCYTES PERCENT AUTO 14 % (21-46); MONOCYTES ABSOLUTE AUTO 0.68 K/mm3 (0.16-1.47); MONOCYTES PERCENT AUTO 8 % (4-13); Mean Corpuscular HGB 28.6 pg (26.0-34.0); Mean Corpuscular HGB Conc 33.6 g/dL (31.5-36.5); Mean Corpuscular Volume 85 fL (80-100); Mean Platelet Volume 9.3 fL (9.1-12.4); NEUTROPHILS ABSOLUTE AUTO 6.32 K/mm3 (1.96-9.15); NEUTROPHILS PERCENT AUTO 76 % (41-73); Platelet Count 223 K/mm3 (150-400); RDW Coefficient Variation 21.3 % (11.7-14.2); RDW Standard Deviation 65.7 fL (35.1-46.3); Red Blood Cell Count 5.24 M/mm3 (3.80-5.20); White Blood Cell Count 8.36 K/mm3 (4.00-11.30)
[2020-03-05 17:20] LABS: Source, Urine Catheter
[2020-03-05 17:32] LABS: Bilirubin, Urine Neg (Neg); Blood, Urine Neg (Neg); Glucose Qualitative, Urine Neg (Neg); Ketones, Urine Neg (Neg); Leukocyte Esterase, Urine Neg (Neg); Nitrite, Urine Neg (Neg); Protein, Urine 2+ (Neg); Urobilinogen, Urine NORM (Normal)
[2020-03-05 18:06] LABS: Appearance, Urine Clear (Clear); Color, Urine Yellow (P-Yellow)
[2020-03-05 18:07] LABS: Albumin, Blood 3.3 g/dL (3.4-5.0); Albumin/Globulin Ratio 0.9 (0.8-1.8); Alk Phos 93 U/L (50-136); Anion Gap 7 mmol/L (6-16); Bilirubin, Total 0.3 mg/dL (0.1-1.0); Blood Urea Nitrogen 9 mg/dL (8-24); Bun/Creatinine Ratio 16.1 (12.0-20.0); CO2, Blood 29 mmol/L (21-32); Chloride, Blood 104 mmol/L (98-108); Creatinine, Blood 0.56 mg/dL (0.40-1.00); Globulin, Blood 3.6 g/dL (2.2-4.0); Glomerular Filtration Rate >60 (60-); Glucose, Blood 123 mg/dL (70-99); Potassium, Blood 3.1 mmol/L (3.5-5.5); Sodium, Blood 140 mmol/L (136-145); Total Protein, Blood 6.9 g/dL (6.4-8.2)
[2020-03-05 18:08] LABS: Alanine Aminotransfer (ALT/SGP 13 U/L (12-78); Aspartate Aminotrans (AST/SGOT 13 U/L (12-37); Troponin I <0.015 ng/mL (0.000-0.040)
[2020-03-05 18:12] LABS: Bacteria Few /hpf; Red Blood Cells, Urine 0-2 /hpf (0-2); Squamous Epithelial Cells Few /hpf (Few); White Blood Cells, Urine 0-2 /hpf (0-5)
[2020-03-05 21:06] LABS: Adenovirus Not Detected (NOT DETECT); Coronavirus 229E Not Detected (NOT DETECT); Coronavirus HKU1 Not Detected (NOT DETECT); Coronavirus NL63 Not Detected (NOT DETECT)
[2020-03-05 21:07] LABS: Bordetella pertussis Not Detected (NOT DETECT); Chlamydophila pneumoniae Not Detected (NOT DETECT); Coronavirus OC43 Not Detected (NOT DETECT); Human Metapneumovirus Not Detected (NOT DETECT); Human Rhinovirus/Enterovirus Not Detected (NOT DETECT); Influenza A/2009-H1 Not Detected (NOT DETECT); Influenza A/H1 Not Detected (NOT DETECT); Influenza A/H3 Not Detected (NOT DETECT); Influenza B Not Detected (NOT DETECT); Mycoplasma pneumoniae Not Detected (NOT DETECT); Parainfluenza Virus 1 Not Detected (NOT DETECT); Parainfluenza Virus 2 Not Detected (NOT DETECT); Parainfluenza Virus 3 Not Detected (NOT DETECT); Parainfluenza Virus 4 Not Detected (NOT DETECT); Respiratory Syncytial Virus Not Detected (NOT DETECT)
[2020-03-06] MEDS ORDERED: Esgic Tablet1 EACH PO (06:16)
[2020-03-06] MEDS ORDERED: PROM25 PO (06:16)
== END 2020-03-05 21:55 | disposition home or self-care (01) ==
LOC: ER 15:22
PROVIDERS: Emergency Medicine
DX: R53.1 Weakness (principal); E87.6 Hypokalemia; E11.40 Type 2 diabetes mellitus with diabetic neuropathy, unspecified; I10 Essential (primary) hypertension; E03.9 Hypothyroidism, unspecified; E78.5 Hyperlipidemia, unspecified; J44.9 Chronic obstructive pulmonary disease, unspecified; G47.30 Sleep apnea, unspecified; Z79.899 Other long term (current) drug therapy; Z79.51 Long term (current) use of inhaled steroids; Z79.84 Long term (current) use of oral hypoglycemic drugs; Z99.89 Dependence on other enabling machines and devices; Z91.048 Other nonmedicinal substance allergy status; Z87.891 Personal history of nicotine dependence
CPT/HCPCS: 0099U; 36415; 71045; 80053; 81001; 84484; 85025; 93005; 93010; 94640; 94664; 96361; 96374; 99284-25; J2405; J7030; P9612

== ENCOUNTER 2020-03-06 04:41 | Emergency (ER) | payer MEDICARE, OTHER ==
[~2020-03-06] VITALS: Ht 167.6 cm; Wt 63.5 kg
[2020-03-06] MEDS ORDERED: Esgic Tablet1 EACH PO (06:16)
[2020-03-06] MEDS ORDERED: PROM25 PO (06:16)
== END 2020-03-06 06:53 | disposition home or self-care (01) ==
LOC: ER 04:41
DX: G43.909 Migraine, unspecified, not intractable, without status migrainosus (principal); E11.40 Type 2 diabetes mellitus with diabetic neuropathy, unspecified; J44.9 Chronic obstructive pulmonary disease, unspecified; G89.29 Other chronic pain; F17.200 Nicotine dependence, unspecified, uncomplicated; G90.50 Complex regional pain syndrome I, unspecified; Z91.048 Other nonmedicinal substance allergy status; Z79.899 Other long term (current) drug therapy
CPT/HCPCS: 99283

== ENCOUNTER → 2020-08-18 | Outpatient (CLI) | payer MEDICARE, OTHER | END | disposition home or self-care (01) | LOC: PLD 13:54 → LAB SHORT 13:54 | DX: L60.8 Other nail disorders (principal) | CPT/HCPCS: 88304; 88312 ==

== ENCOUNTER 2021-01-31 11:13 | Emergency (ER) | payer MEDICARE, OTHER ==
[~2021-01-31] VITALS: Ht 162.6 cm; Wt 64.0 kg
[2021-01-31 11:51] LABS: BASOPHILS ABSOLUTE AUTO 0.07 K/mm3 (0.00-0.23); BASOPHILS PERCENT AUTO 1 % (0-2); EOSINOPHILS ABSOLUTE AUTO 0.34 K/mm3 (0.00-0.68); EOSINOPHILS PERCENT AUTO 4 % (0-6); Hematocrit 40.7 % (33.0-51.0); Hemoglobin 13.5 g/dL (11.5-16.0); IMMATURE GRAN ABSOLUTE AUTO 0.07 K/mm3 (0.00-0.10); IMMATURE GRAN PERCENT AUTO 1 % (0-1); LYMPHOCYTES ABSOLUTE AUTO 1.65 K/mm3 (0.84-5.20); LYMPHOCYTES PERCENT AUTO 18 % (21-46); MONOCYTES ABSOLUTE AUTO 0.87 K/mm3 (0.16-1.47); MONOCYTES PERCENT AUTO 9 % (4-13); Mean Corpuscular HGB 30.1 pg (26.0-34.0); Mean Corpuscular HGB Conc 33.2 g/dL (31.5-36.5); Mean Corpuscular Volume 91 fL (80-100); Mean Platelet Volume 9.2 fL (9.1-12.4); NEUTROPHILS PERCENT AUTO 68 % (41-73); Platelet Count 176 K/mm3 (150-400); RDW Coefficient Variation 14.4 % (11.7-14.2); RDW Standard Deviation 48.3 fL (35.1-46.3); Red Blood Cell Count 4.48 M/mm3 (3.80-5.20)
[2021-01-31 12:09] LABS: Albumin, Blood 3.3 g/dL (3.4-5.0); Bilirubin, Total 0.3 mg/dL (0.1-1.0); Bun/Creatinine Ratio 23.3 (12.0-20.0); Calcium, Blood 8.6 mg/dL (8.5-10.1); Creatinine, Blood 1.03 mg/dL (0.40-1.00); Globulin, Blood 3.4 g/dL (2.2-4.0); Potassium, Blood 4.1 mmol/L (3.5-5.5); Total Protein, Blood 6.7 g/dL (6.4-8.2)
[2021-01-31 12:40] LABS: Influenza A, PCR NEGATIVE (NEGATIVE); Influenza B, PCR NEGATIVE (NEGATIVE); Resp Syncytial Virus, PCR NEGATIVE (NEGATIVE); SARS-Cov-2 (COVID-19) PCR, MMC NEGATIVE (NEGATIVE)
[2021-01-31] MEDS ORDERED: Flonase 0.05% N16 GM (13:16)
== END 2021-01-31 13:24 | disposition home or self-care (01) ==
LOC: ER 11:13
PROVIDERS: Emergency Medicine; Physician Assistant
DX: J00 Acute nasopharyngitis [common cold] (principal); Z20.822 Contact with and (suspected) exposure to COVID-19; Z79.899 Other long term (current) drug therapy
CPT/HCPCS: 0241U; 36415; 71045; 80053; 85025; 93005; 93010; 99284-25

== ENCOUNTER → 2021-02-05 | Outpatient (CLI) | payer MEDICARE, OTHER ==
[2021-02-05 14:23] LABS: Source, Urine Clean Catch
[2021-02-05 15:22] LABS: Appearance, Urine Hazy (Clear); Bilirubin, Urine Neg (Neg); Blood, Urine 2+ (Neg); Color, Urine Amber (P-Yellow); Glucose Qualitative, Urine Neg (Neg); Ketones, Urine Neg (Neg); Leukocyte Esterase, Urine 1+ (Neg); Nitrite, Urine Neg (Neg); Protein, Urine Neg (Neg); Urobilinogen, Urine NORM (Normal)
[2021-02-05 16:02] LABS: Mucus Light (0-Heavy); Squamous Epithelial Cells Mod /hpf (Few)
[2021-02-05 16:03] LABS: Amorphous Mod (0-Heavy); Bacteria Mod /hpf; Transitional Epithelial Cells Few /hpf (0-Rare)
== END | disposition home or self-care (01) ==
LOC: LAB FUT 12-19 15:25 → LAB SHORT 14:21 → OLS 14:21
PROVIDERS: Registered Nurse Oncology
DX: C71.9 Malignant neoplasm of brain, unspecified (principal); R30.0 Dysuria
CPT/HCPCS: 81001

== ENCOUNTER → 2021-04-27 | Outpatient (CLI) | payer MEDICARE, OTHER | END | disposition home or self-care (01) | LOC: LAB 10:45 → LAB SHORT 10:45 | DX: N39.46 Mixed incontinence (principal) | CPT/HCPCS: 87086 ==

== ENCOUNTER 2021-09-15 07:33 | Emergency (ER) | payer MEDICARE, OTHER ==
[~2021-09-15] VITALS: Ht 162.6 cm; Wt 63.5 kg
[2021-09-15 08:40] LABS: BASOPHILS ABSOLUTE AUTO 0.05 K/mm3 (0.00-0.23); BASOPHILS PERCENT AUTO 1 % (0-2); EOSINOPHILS ABSOLUTE AUTO 0.71 K/mm3 (0.00-0.68); EOSINOPHILS PERCENT AUTO 9 % (0-6); Hematocrit 40.4 % (33.0-51.0); Hemoglobin 13.3 g/dL (11.5-16.0); IMMATURE GRAN ABSOLUTE AUTO 0.04 K/mm3 (0.00-0.10); IMMATURE GRAN PERCENT AUTO 1 % (0-1); LYMPHOCYTES ABSOLUTE AUTO 2.11 K/mm3 (0.84-5.20); LYMPHOCYTES PERCENT AUTO 26 % (21-46); MONOCYTES PERCENT AUTO 9 % (4-13); Mean Corpuscular HGB 28.2 pg (26.0-34.0); Mean Corpuscular HGB Conc 32.9 g/dL (31.5-36.5); Mean Corpuscular Volume 86 fL (80-100); Mean Platelet Volume 9.1 fL (9.1-12.4); NEUTROPHILS ABSOLUTE AUTO 4.53 K/mm3 (1.96-9.15); NEUTROPHILS PERCENT AUTO 56 % (41-73); Platelet Count 179 K/mm3 (150-400); RDW Coefficient Variation 14.5 % (11.7-14.2); RDW Standard Deviation 44.6 fL (35.1-46.3); Red Blood Cell Count 4.71 M/mm3 (3.80-5.20); White Blood Cell Count 8.14 K/mm3 (4.00-11.30)
[2021-09-15 08:56] LABS: Albumin, Blood 3.1 g/dL (3.4-5.0); Albumin/Globulin Ratio 0.9 (0.8-1.8); Bilirubin, Total 0.3 mg/dL (0.1-1.0); Creatinine, Blood 1.05 mg/dL (0.40-1.00); Globulin, Blood 3.5 g/dL (2.2-4.0); Magnesium, Blood 1.7 mg/dL (1.6-2.4); Phosphorus, Blood 3.5 mg/dL (2.5-4.9); Total Protein, Blood 6.6 g/dL (6.4-8.2)
[2021-09-15] MEDS ORDERED: MIRTAZAPINE PO (10:11)
== END 2021-09-15 10:30 | disposition home or self-care (01) ==
LOC: ER 07:33
PROVIDERS: Physician Assistant
DX: L29.9 Pruritus, unspecified (principal); K59.00 Constipation, unspecified; I10 Essential (primary) hypertension; E11.40 Type 2 diabetes mellitus with diabetic neuropathy, unspecified; E03.9 Hypothyroidism, unspecified; J44.9 Chronic obstructive pulmonary disease, unspecified; E78.5 Hyperlipidemia, unspecified; F17.200 Nicotine dependence, unspecified, uncomplicated; Z91.048 Other nonmedicinal substance allergy status; Z79.899 Other long term (current) drug therapy; Z79.84 Long term (current) use of oral hypoglycemic drugs
CPT/HCPCS: 74018; 80053; 83690; 83735; 84100; 84439; 85025; 99285-25

== ENCOUNTER 2021-09-22 12:55 | Emergency (ER) | payer MEDICARE, OTHER ==
[~2021-09-22] VITALS: Ht 162.6 cm; Wt 65.8 kg
[~2021-09-22 12:55] MED LIST changes: +MIRTAZAPINE PO
== END 2021-09-22 15:52 | disposition home or self-care (01) ==
LOC: ER 12:55
DX: S62.646A Nondisplaced fracture of proximal phalanx of right little finger, initial encounter for closed fracture (principal); S60.211A Contusion of right wrist, initial encounter; W18.30XA Fall on same level, unspecified, initial encounter; Z88.8 Allergy status to other drugs, medicaments and biological substances; Z91.048 Other nonmedicinal substance allergy status; Z79.899 Other long term (current) drug therapy; Z79.84 Long term (current) use of oral hypoglycemic drugs; I10 Essential (primary) hypertension; E11.40 Type 2 diabetes mellitus with diabetic neuropathy, unspecified; E03.9 Hypothyroidism, unspecified; M19.90 Unspecified osteoarthritis, unspecified site; E78.5 Hyperlipidemia, unspecified; F17.200 Nicotine dependence, unspecified, uncomplicated
CPT/HCPCS: 29130; 73110; 73130; 99283-25; A9270

== ENCOUNTER → 2021-11-12 | Outpatient (CLI) | payer MEDICARE, OTHER ==
[~2021-11-12] MED LIST changes: +ALBU90OI INH; +BREO ELLIPTA 11 EAC1 INH; +CYMBALTA30 M1 PO; +DICLOFENAC SOD100 GM; +EUTHYROX50 MCG PO; +EUTHYROX75 MCG PO; +Loratadine10 MG PO; +MIRT15 PO; +Mucus Relief400 MG PO; +NYSTATIN15 GM TOP; +NYSTRIT; +ONDA4 PO; +ROXICODONE15 MG PO; +TIZA4 PO; +Toviaz8 MG PO; +VANCOCIN HCL125 MG PO
== END | disposition home or self-care (01) ==
LOC: LAB SHORT 19:13
DX: N39.0 Urinary tract infection, site not specified (principal)
CPT/HCPCS: 87077; 87086; 87186

== ENCOUNTER 2021-11-13 06:46 | Emergency (ER) | payer MEDICARE, OTHER ==
[~2021-11-13] VITALS: Ht 160 cm; Wt 65.8 kg
[~2021-11-13 06:46] MED LIST changes: -ALBU90OI INH; -BREO ELLIPTA 11 EAC1 INH; -CYMBALTA30 M1 PO; -DICLOFENAC SOD100 GM; -EUTHYROX50 MCG PO; -EUTHYROX75 MCG PO; -Loratadine10 MG PO; -MIRT15 PO; -Mucus Relief400 MG PO; -NYSTATIN15 GM TOP; -NYSTRIT; -ONDA4 PO; -ROXICODONE15 MG PO; -TIZA4 PO; -Toviaz8 MG PO; -VANCOCIN HCL125 MG PO
[2021-11-13] MEDS ORDERED: SITA50T2 PO (07:29)
[2021-11-13] MEDS ORDERED: OMEP20ER PO (07:30)
[2021-11-13] MEDS ORDERED: FURO40 PO (07:30)
[2021-11-13] MEDS ORDERED: ATOR40TA PO (07:30)
[2021-11-13] MEDS ORDERED: EUTHYROX50 MCG PO (07:30)
[2021-11-13] MEDS ORDERED: CYMBALTA30 M1 PO (07:31)
[2021-11-13] MEDS ORDERED: TIZA4 PO (07:32)
[2021-11-13] MEDS ORDERED: Toviaz8 MG PO (07:32)
[2021-11-13] MEDS ORDERED: POTA10T PO (07:32)
[2021-11-13] MEDS ORDERED: MIRT15ST PO (07:33)
[2021-11-13] MEDS ORDERED: ALBU90OI (07:33)
[2021-11-13] MEDS ORDERED: OXYC15ER PO (07:33)
[2021-11-13] MEDS ORDERED: NYSTRIT (07:34)
[2021-11-13] MEDS ORDERED: DICLOFENAC SOD100 GM (07:34)
[2021-11-13] MEDS ORDERED: ONDA4 PO (07:34)
[2021-11-13 08:58] LABS: Albumin, Blood 3.5 g/dL (3.4-5.0); Albumin/Globulin Ratio 0.9 (0.8-1.8); Bilirubin, Total 0.4 mg/dL (0.1-1.0); Bun/Creatinine Ratio 20.6 (12.0-20.0); Calcium, Blood 10.2 mg/dL (8.5-10.1); Creatinine, Blood 1.31 mg/dL (0.40-1.00); Potassium, Blood 4.2 mmol/L (3.5-5.5); Total Protein, Blood 7.5 g/dL (6.4-8.2)
[2021-11-13 09:20] LABS: BASOPHILS ABSOLUTE AUTO 0.03 K/mm3 (0.00-0.23); BASOPHILS PERCENT AUTO 0 % (0-2); EOSINOPHILS ABSOLUTE AUTO 0.17 K/mm3 (0.00-0.68); EOSINOPHILS PERCENT AUTO 2 % (0-6); Hematocrit 41.7 % (33.0-51.0); Hemoglobin 13.6 g/dL (11.5-16.0); IMMATURE GRAN ABSOLUTE AUTO 0.05 K/mm3 (0.00-0.10); IMMATURE GRAN PERCENT AUTO 0 % (0-1); LYMPHOCYTES ABSOLUTE AUTO 0.42 K/mm3 (0.84-5.20); LYMPHOCYTES PERCENT AUTO 4 % (21-46); MONOCYTES PERCENT AUTO 4 % (4-13); Mean Corpuscular HGB 29.3 pg (26.0-34.0); Mean Corpuscular HGB Conc 32.6 g/dL (31.5-36.5); Mean Corpuscular Volume 90 fL (80-100); Mean Platelet Volume 8.5 fL (9.1-12.4); NEUTROPHILS ABSOLUTE AUTO 10.42 K/mm3 (1.96-9.15); NEUTROPHILS PERCENT AUTO 91 % (41-73); Platelet Count 205 K/mm3 (150-400); RDW Coefficient Variation 14.3 % (11.7-14.2); RDW Standard Deviation 47.1 fL (35.1-46.3); Red Blood Cell Count 4.64 M/mm3 (3.80-5.20); White Blood Cell Count 11.49 K/mm3 (4.00-11.30)
[2021-11-13 10:35] LABS: Source, Urine Clean Catch
[2021-11-13 10:40] LABS: Appearance, Urine Hazy (Clear); Bilirubin, Urine Neg (Neg); Blood, Urine 1+ (Neg); Color, Urine Yellow (P-Yellow); Glucose Qualitative, Urine Neg (Neg); Ketones, Urine Neg (Neg); Leukocyte Esterase, Urine 3+ (Neg); Nitrite, Urine Neg (Neg); Protein, Urine 2+ (Neg); Specific Gravity, Urine 1.015 (1.003-1.022); Urobilinogen, Urine NORM (Normal)
[2021-11-13 10:55] LABS: Red Blood Cells, Urine 0-2 /hpf (0-2); White Blood Cells, Urine 50-100 /hpf (0-5)
[2021-11-13 10:56] LABS: Bacteria Mod /hpf; Squamous Epithelial Cells Mod /hpf (Few)
[2021-11-13] MEDS ORDERED: VANCOCIN HCL125 MG PO (11:33)
== END 2021-11-13 11:56 | disposition home or self-care (01) ==
LOC: ER 06:46
PROVIDERS: Student in an Organized Health Care Education/Training Program
DX: A04.72 Enterocolitis due to Clostridium difficile, not specified as recurrent (principal); I10 Essential (primary) hypertension; E11.40 Type 2 diabetes mellitus with diabetic neuropathy, unspecified; E03.9 Hypothyroidism, unspecified; K21.9 Gastro-esophageal reflux disease without esophagitis; J44.9 Chronic obstructive pulmonary disease, unspecified; E78.5 Hyperlipidemia, unspecified; F17.200 Nicotine dependence, unspecified, uncomplicated; Z91.048 Other nonmedicinal substance allergy status; Z79.899 Other long term (current) drug therapy
CPT/HCPCS: 36415; 71045; 74177; 80053; 81001; 85025; 87077; 87086; 87186; 93005; 93010; 96374; 99285-25; J2405; J7030; P9612; Q9967

== ENCOUNTER → 2021-11-13 | Outpatient (CLI) | payer MEDICARE, OTHER ==
[2021-11-13 09:33] LABS: Adenovirus F 40/41 Not Detected (NOT DETECT); Astrovirus Not Detected (NOT DETECT); Campylobacter Sp Not Detected (NOT DETECT); Cryptosporidium Not Detected (NOT DETECT); Cyclospora Cayetanensis Not Detected (NOT DETECT); E. Coli O157 Not Detected (NOT DETECT); Entamoeba Histolytica Not Detected (NOT DETECT); Enteroaggregative E. coli-EAEC Not Detected (NOT DETECT); Enteropathogenic E. coli-EPEC Not Detected (NOT DETECT); Enterotoxigenic E. coli-ETEC Not Detected (NOT DETECT); Giardia Lamblia Not Detected (NOT DETECT); Norovirus GI/GII Not Detected (NOT DETECT); Plesiomonas Shigelloides Not Detected (NOT DETECT); Rotavirus A Not Detected (NOT DETECT); Salmonella Sp Not Detected (NOT DETECT); Sapovirus Not Detected (NOT DETECT); Shiga Toxin-prod E. coli-STEC Not Detected (NOT DETECT); Shigella/Enteroin E. coli-EIEC Not Detected (NOT DETECT); Vibrio Cholerae Not Detected (NOT DETECT); Vibrio Sp Not Detected (NOT DETECT); Yersinia Enterocolitica Not Detected (NOT DETECT)
== END ==
LOC: LAB SHORT 04:19
PROVIDERS: Chiropractor
DX: R19.7 Diarrhea, unspecified (principal); Z86.19 Personal history of other infectious and parasitic diseases
CPT/HCPCS: 0097U; 87324

== ENCOUNTER → 2022-01-13 | Outpatient (CLI) | payer MEDICARE, OTHER ==
[~2022-01-13] MED LIST changes: +ALBU90OI; +CYMBALTA30 M1 PO; +DICLOFENAC SOD100 GM; +EUTHYROX50 MCG PO; +MIRT15ST PO; +NYSTRIT; +ONDA4 PO; +TIZA4 PO; +Toviaz8 MG PO; +VANCOCIN HCL125 MG PO
== END | disposition home or self-care (01) ==
LOC: LAB 19:01 → LAB SHORT 19:01
DX: N39.0 Urinary tract infection, site not specified (principal)
CPT/HCPCS: 87077; 87086; 87186

== ENCOUNTER 2022-01-25 01:26 | Inpatient (IN) | payer MEDICARE, OTHER ==
[~2022-01-25] VITALS: Ht 165.1 cm; Wt 90.7 kg
[~2022-01-25 01:26] MED LIST changes: -ALBU90OI; +ALBU90OI INH; +MIRT15 PO; -MIRT15ST PO
[2022-01-25 02:16] LABS: Hematocrit 42.2 % (33.0-51.0); Hemoglobin 13.4 g/dL (11.5-16.0); Mean Corpuscular HGB 28.8 pg (26.0-34.0); Mean Corpuscular HGB Conc 31.8 g/dL (31.5-36.5); Mean Corpuscular Volume 91 fL (80-100); Platelet Count 283 K/mm3 (150-400); RDW Coefficient Variation 15.4 % (11.7-14.2); RDW Standard Deviation 51.4 fL (35.1-46.3); Red Blood Cell Count 4.65 M/mm3 (3.80-5.20); White Blood Cell Count 11.57 K/mm3 (4.00-11.30)
[2022-01-25 02:22] LABS: Albumin, Blood 2.7 g/dL (3.4-5.0); Albumin/Globulin Ratio 0.5 (0.8-1.8); Bilirubin, Total 0.4 mg/dL (0.1-1.0); Calcium, Blood 8.3 mg/dL (8.5-10.1); Creatinine, Blood 1.25 mg/dL (0.40-1.00); Globulin, Blood 5.1 g/dL (2.2-4.0); Potassium, Blood 3.9 mmol/L (3.5-5.5); Total Protein, Blood 7.8 g/dL (6.4-8.2)
[2022-01-25 02:46] LABS: Source, Urine Clean Catch
[2022-01-25 02:55] LABS: Bilirubin, Urine Neg (Neg); Blood, Urine Neg (Neg); Glucose Qualitative, Urine Neg (Neg); Ketones, Urine Neg (Neg); Leukocyte Esterase, Urine Neg (Neg); Nitrite, Urine Neg (Neg); Protein, Urine 3+ (Neg); Specific Gravity, Urine 1.025 (1.003-1.022); Urobilinogen, Urine NORM (Normal)
[2022-01-25 02:59] LABS: BAND PERCENT MAN 10 % (0-8); BASOPHILS PERCENT MAN 0 % (0-2); EOSINOPHILS PERCENT MAN 0 % (0-6); LYMPHOCYTES ABSOLUTE MAN 1.15 K/mm3 (0.84-5.20); LYMPHOCYTES PERCENT MAN 10 % (21-46); METAMYELOCYTE ABSOLUTE MAN 0.11 K/mm3 (0.00-0.00); METAMYELOCYTE PERCENT MAN 1 % (0-0); MONOCYTES PERCENT MAN 13 % (4-13); NEUTROPHILS ABSOLUTE MAN 8.79 K/mm3 (1.96-9.15); SEG NEUTROPHILS PERCENT MAN 66 % (41-73); TOTAL CELLS COUNTED 100
[2022-01-25 03:24] LABS: Appearance, Urine Hazy (Clear); Color, Urine Yellow (P-Yellow)
[2022-01-25 03:30] LABS: Influenza A, PCR NEGATIVE (NEGATIVE); Influenza B, PCR NEGATIVE (NEGATIVE); Resp Syncytial Virus, PCR NEGATIVE (NEGATIVE); SARS-Cov-2 (COVID-19) PCR, MMC NEGATIVE (NEGATIVE)
[2022-01-25 03:40] LABS: Bacteria Few /hpf; Red Blood Cells, Urine 0-2 /hpf (0-2); Squamous Epithelial Cells Mod /hpf (Few)
[2022-01-25 03:41] LABS: Amorphous Light (0-Heavy); Hyaline Casts 0-2 /lpf (0-2)
[2022-01-25] MEDS ORDERED: ROXICODONE15 MG PO (04:16)
[2022-01-25 04:52] LABS: Base Excess Venous -3.8 mmol/L; Bicarbonate Venous 20.9 mmol/L (24.0-30.0); PCO2 Venous 49.6 mmHg (38-42); PO2 Venous 65.7 mmHg (38-42); pH Blood Venous 7.28 (7.34-7.37)
[2022-01-25 04:53] LABS: Thyroid Stimulating Hormone 0.294 uIU/mL (0.360-4.800)
[2022-01-25] MEDS ORDERED: DULO60 PO (05:43)
[2022-01-25] MEDS ORDERED: Loratadine10 MG PO (05:44)
[2022-01-25] MEDS ORDERED: NYSTATIN15 GM TOP (05:47)
[2022-01-25] MEDS ORDERED: BREO ELLIPTA 11 EAC1 INH (05:48)
[2022-01-25] MEDS ORDERED: Toviaz8 MG PO (05:49)
--- NOTE | 2022-01-25 06:42 | NUR ---
ADMISSION NOTE PATIENT ADMITTED IN MEDICAL UNIT AT 0550 ALERT AORIENTED X 2 UNABLE TO GIVE MUCH HISTRY DURING ADMISSSION.LUNGS DIMISHED JEVON NON PRODUCTIVE NOTED ON OXYGEN 2L/MIN VIA N/C NO SOB NOTED PT IS DNR DOUBLE CHECKED WITH CHARGE NURSE DONELL.REDNESS TO HER LEFT UNDER BREAST,DENIES PAIN AT THIS MOMENT PT REFUSED FLU VAC.PT IS NPO AT THIS MOMENT
[2022-01-26 05:02] LABS: BASOPHILS ABSOLUTE AUTO 0.08 K/mm3 (0.00-0.23); BASOPHILS PERCENT AUTO 1 % (0-2); Hematocrit 33.7 % (33.0-51.0); Hemoglobin 10.9 g/dL (11.5-16.0); LYMPHOCYTES ABSOLUTE AUTO 1.36 K/mm3 (0.84-5.20); LYMPHOCYTES PERCENT AUTO 12 % (21-46); MONOCYTES ABSOLUTE AUTO 1.18 K/mm3 (0.16-1.47); MONOCYTES PERCENT AUTO 11 % (4-13); Mean Corpuscular HGB 28.6 pg (26.0-34.0); Mean Corpuscular HGB Conc 32.3 g/dL (31.5-36.5); Mean Corpuscular Volume 89 fL (80-100); Platelet Count 208 K/mm3 (150-400); RDW Coefficient Variation 15.4 % (11.7-14.2); RDW Standard Deviation 50.3 fL (35.1-46.3); Red Blood Cell Count 3.81 M/mm3 (3.80-5.20); White Blood Cell Count 11.27 K/mm3 (4.00-11.30)
[2022-01-26 05:06] LABS: EOSINOPHILS ABSOLUTE AUTO 0.28 K/mm3 (0.00-0.68); EOSINOPHILS PERCENT AUTO 3 % (0-6); IMMATURE GRAN ABSOLUTE AUTO 0.35 K/mm3 (0.00-0.10); IMMATURE GRAN PERCENT AUTO 3 % (0-1); NEUTROPHILS ABSOLUTE AUTO 8.02 K/mm3 (1.96-9.15); NEUTROPHILS PERCENT AUTO 71 % (41-73)
--- NOTE | 2022-01-26 05:10 | NUR ---
SHIFT SUMMARY ALERT AND ORIENTED TO SELF WITH SOME CONFUSION AT TIME NEW IV LINE WAS PLACE TO HER RIGHT AC FLUSHING WELL NS @ 100ML/HR RUNING ORDERED .NON PRODUCTIVE COUGH SCHEULED MUCCINEX ADM WITH RELIEF.INCONT CARE DONE CALL LIGHT WITH REACH NO ACUTE CHANGE.PT REFUSED THIS NURSE TO TAKE PICTURES OF HER GENITAL WARTS.
[2022-01-26 05:26] LABS: Alanine Aminotransfer (ALT/SGP 22 U/L (12-78); Albumin, Blood 2.1 g/dL (3.4-5.0); Albumin/Globulin Ratio 0.5 (0.8-1.8); Alk Phos 122 U/L (50-136); Anion Gap 8 mmol/L (6-16); Aspartate Aminotrans (AST/SGOT 14 U/L (12-37); Bilirubin, Total 0.3 mg/dL (0.1-1.0); Blood Urea Nitrogen 17 mg/dL (8-24); Bun/Creatinine Ratio 22.7 (12.0-20.0); CO2, Blood 23 mmol/L (21-32); Calcium, Blood 7.7 mg/dL (8.5-10.1); Chloride, Blood 109 mmol/L (98-108); Creatinine, Blood 0.75 mg/dL (0.40-1.00); Globulin, Blood 4.1 g/dL (2.2-4.0); Glomerular Filtration Rate >60 (60-); Glucose, Blood 105 mg/dL (70-99); Potassium, Blood 3.3 mmol/L (3.5-5.5); Sodium, Blood 140 mmol/L (136-145); Total Protein, Blood 6.2 g/dL (6.4-8.2)
--- NOTE | 2022-01-26 16:32 | NUR ---
PATIENT'S COUGH UPON ADMISSION HAS SEEMED TO WORSEN. PATIENT HAS A NON PRODUCTIVE COUGH. HER LUNGS SOUND LIKE THERE IS A WHEEZE AND LUNGS ARE COARSE. MD NOTIFIED SEE NEW PRN ORDERS IN (JAN).
--- NOTE | 2022-01-26 18:43 | NUR ---
PATIENT ASLEEP UPON ARRIVAL. RN AND STAFF PIVOT TRANSFERRED PT TO CHAIR. PT UNABLE TO STAND UP STAIGHT AND HUNCHES HER BACK WHEN ATTEMPTINT TO STAND UP. 2 STAFF REQUIRED TO KEEP PATIENT UP FROM FALLING. 02 REMOVED BY MD. PATIENTS SATS MAINTAINED ABOVE 97%. PT HAD A BM AND MULTIPLE VOIDS TODAY. PATIENTS LUNGS SOUNDED COURSE WITH POSSIBLE WHEEZE. RT NOTIFIED AND ASSESMENT COMPLETED PRIOR TO PRN ALBUTEROL. PT HAS BEEN COUGHING ALL DAY (NON PRODUCTIVE) DESPITE HAVING SCHEDULED GUAFENESIN. MD NOTIFIED, PRN GUAFENESIN/CODIENE ORDERED FOR PT. CONT PULSE OXIMETER AND TELE STILL ATTACHED. PT'S COUGHING HAS DECREASED AND PATIENT STATES THEY FEEL BETTER. WILL REPORT TO ONCOMING NURSE UPON ARRIVAL.
--- NOTE | 2022-01-27 04:28 | NUR ---
SHIFT SUMMARY PATIENT REMAIN ALERT AND PLEASANT LUNGS SOUNDS CLEAR NON-PRODUCTIVE COUGH NOTED SCHEDUEL MUCCINEX ADM WITH RELIEF .ON ROOM AIR SPO2 94% NO SOB NOTED SNORING HEAVLY AT NIGHT PATIENT REFUSED CPAP.DENIES PAIN AT THIS MOMENT SAFTEY IN PLACE CALL LIGHT IN PLACE NO ACUTE CHANGES NOTED.
--- NOTE | 2022-01-27 17:06 | NUR ---
Received referral from nurse wound care physician (Brooks Huerta) on 01/27/2022. [facility] Due to patient's currently condition, contacted patient's daughter (Mima Hankins) to further discuss the above. Patient's daughter is agreeable to the above. Discussed homebound status definition with patient's daughter. Patient's daughter verbalized understanding. Discussed what home health is vs what it is not (in home caregivers/housekeeping). Patient's daughter verbalized understanding. Discussed the next steps in the process of an initial assessment to determine frequency of visits. Again patient's daughter verbalized understanding. Offered a chance for patient's daughter to ask questions regarding the above of which there were none. At this time patient has no discharge orders entered. Will continue to monitor and follow for discharge. Bessy Chery Referral Liaison
--- NOTE | 2022-01-27 18:36 | NUR ---
PT A&OX3. PT WORKED WITH PT EARLIER TODAY. SHE IS 2 PERSON ASSIST TO THE BEDSIDE COMMODE. PT HAD ONE EPISODE OF EMESIS THIS MORNING. MEDICATED PER EMR. PT DENIES ANY NAUSEA AT THE MOMENT. PT RESTING COMFORTABLY. CALL LIGHT PLACED WITHIN REACH. BED IN LOWEST POSITION. BED ALARM ON.
--- NOTE | 2022-01-28 04:41 | NUR ---
SHIFT SUMMARY PATIENT ALERT AND ORIENTED 2-3 ABLE TO VOICE NEEDS TO STAFF LUNGS SOUND WHEEZING JEVON WITH NON PRODUCTIVE WET COUGH GUAIFESIN WITH CODEINE ADM ORDERED X2 WITH RELIEF.PT DIDNT SLEEP WELL WORRING ABOUT D/C HOME TODAY.NO ACUTE CHANGE NOTED
--- NOTE | 2022-01-29 05:02 | NUR ---
NEW ORDER RECIVED PATIENT TO BE NPO
--- NOTE | 2022-01-29 05:09 | NUR ---
SHIFT SUMMARY AOX3 ABLE TO VOICE NEEDS PT OBSEVERED RESTING QUITLY INCONT CARE DONE BY STAFF DENIES PAIN AT THIS MOMENT PT DID NOT REQUEST FOR COUGH MEDICATION NO ACUTE CHANGE IN THIS SHIFT
[2022-01-29] MEDS ORDERED: DULO30 PO (13:28)
[2022-01-29] MEDS ORDERED: EUTHYROX75 MCG PO (13:37)
[2022-01-29] MEDS ORDERED: Mucus Relief400 MG PO (13:40)
[2022-01-29] MEDS ORDERED: PRED20 PO (14:40)
--- NOTE | 2022-01-29 16:31 | NUR ---
DISCHARGE SUMMARY DISCHARGE INSTRUCTIONS EXPLAINED TO PT AND HER GRANDDAUGHTER PATRICIA. EXPLAINED TO PT AND GRND DTR TO MAKE APPOINTMENT WITH PCP FOR FOLLOW UP APPOINTMENT. ALL QUESTIONS ANSWERED. ALL CONCERNS ADDRESSED. PT WHEELED OUT VIA TRANSPORT AT 1550.
--- NOTE | 2022-02-01 08:13 | NUR ---
Patient has now discharged. Gathered all supporting documentation for referral (face sheet, face to face, med list, H&P, discharge summary, and most recent PT assessment) and sent to [facility] for review. No further interventions required. Bessy Chery Referral Liaison
== END 2022-01-29 15:49 | disposition home health service (06) | DRG 92 ==
LOC: ER 01:26 → MEDS 05:32 → ENPENDDIS 01-29 11:57 → MEDS 01-29 15:49
PROVIDERS: Internal Medicine; Student in an Organized Health Care Education/Training Program; ADMIT Family Medicine
DX: G92.8 Other toxic encephalopathy (principal); J44.1 Chronic obstructive pulmonary disease with (acute) exacerbation; J90 Pleural effusion, not elsewhere classified; Z20.822 Contact with and (suspected) exposure to COVID-19; Z66 Do not resuscitate; D72.829 Elevated white blood cell count, unspecified; E11.42 Type 2 diabetes mellitus with diabetic polyneuropathy; E11.22 Type 2 diabetes mellitus with diabetic chronic kidney disease; E78.5 Hyperlipidemia, unspecified; I12.9 Hypertensive chronic kidney disease with stage 1 through stage 4 chronic kidney disease, or unspecified chronic kidney disease; N18.30 Chronic kidney disease, stage 3 unspecified; M54.9 Dorsalgia, unspecified; G47.33 Obstructive sleep apnea (adult) (pediatric); E03.9 Hypothyroidism, unspecified; M19.90 Unspecified osteoarthritis, unspecified site; G89.29 Other chronic pain; Z96.652 Presence of left artificial knee joint; Z91.09 Other allergy status, other than to drugs and biological substances; Z79.899 Other long term (current) drug therapy; Z90.711 Acquired absence of uterus with remaining cervical stump; Z28.21 Immunization not carried out because of patient refusal; Z85.118 Personal history of other malignant neoplasm of bronchus and lung; Z98.890 Other specified postprocedural states; Z87.891 Personal history of nicotine dependence
CPT/HCPCS: 0241U; 36415; 70450; 71045; 80053; 81001; 82140; 82803; 82947; 83605; 84145; 84443; 85025; 87040; 87086; 93005; 93010; 94640; 94664; 94762; 96365; 96375; 97110; 97162; 97530; 99285-25; A9270; J0456; J0696; J1650; J1815; J1940; J2405; J7030; J7050; J7512